=== PATIENT | female | born 1975 | race Caucasian/White ===

== ENCOUNTER 2021-09-12 11:21 | Observation (INO) ==
[2021-09-12] MEDS ORDERED: *HR* FentaNYL (PF) 100 MCG/2 ML VIAL ONE (12:15)
[2021-09-12] MEDS ORDERED: D5% in Lactated Ringers 1,000 ML IVC SCH (12:15)
[2021-09-12] MEDS ORDERED: *HR* Midazolam HCl 2 MG/2 ML VIAL ONE (12:16)
[2021-09-12] MEDS ORDERED: *HR* Propofol 200 MG/20 ML VIAL IVP ONE (12:16)
[2021-09-12] MEDS ORDERED: *HR* Succinylcholine 200 MG/10 ML VIAL IVP ONE (12:17)
[2021-09-12] MEDS ORDERED: Lidocaine -MPF 2% 2 ML VIAL ONE ×2 (12:17→13:05)
[2021-09-12] MEDS ORDERED: Ondansetron 4 MG/2 ML VIAL ONE (12:18)
[2021-09-12] MEDS ORDERED: Lidocaine/EPI 1:100k 1% 50 ML VIAL ONE (12:25)
[2021-09-12 13:21] LABS: Basophils # 0.1 K/mcL (0.0-0.2); Basophils % 0.7 %; Eosinophils % 13.6 %; Hematocrit 37.1 % (35.3-44.9); Hemoglobin 12.4 g/dL (11.5-15.4); Immature Granulocytes % 0.4 % (0-4); Lymphocytes # 2.3 K/mcL (0.6-4.6); Lymphocytes % 32.2 %; Mean Corpuscular HGB Conc 33.4 g/dL (31.6-35.5); Mean Corpuscular Hemoglobin 30.1 pg (28.0-33.3); Mean Platelet Volume 10.1 fL (9.4-12.4); Monocytes # 0.4 K/mcL (0.0-1.3); Monocytes % 5.5 %; Neutrophils # 3.3 K/mcL (1.6-8.9); Platelet Count 246 K/mcL (140-400); Red Blood Count 4.12 M/mcL (3.82-4.97); Segmented Neutrophils % 47.6 %
[2021-09-12] MEDS: *HR* HYDROmorphone (PF) 1 MG/ML SYRINGE IVP PRN ×2 (15:12→15:19)
[2021-09-12] MEDS ORDERED: *HR* HYDROmorphone (PF) 1 MG/ML SYRINGE ONE (15:12)
[2021-09-12 15:32] VITALS: TEMP 97.2
[2021-09-12] MEDS ORDERED: Ibuprofen 600 MG TABLET PO PRN (16:03)
[2021-09-12] MEDS ORDERED: *HR* OxyCODONE/APAP 10/325 TABLET PO PRN ×2 (16:03→18:12)
[2021-09-12 16:24] VITALS: O2SAT 100
[2021-09-12 18:37] VITALS: BP 110/68; PULSE 68
== END 2021-09-12 18:38 | disposition home or self-care (01) ==
LOC: 1NENUOBS
PROVIDERS: ADMIT Obstetrics & Gynecology; ATTEND Obstetrics & Gynecology